=== PATIENT | female | born 1960 | race Caucasian/White ===

== ENCOUNTER → 2019-03-04 | Outpatient (CLI) | payer OTHER | LOC: M.RAD 14:30 | DX: N63.12 Unspecified lump in the right breast, upper inner quadrant (principal) ==

== ENCOUNTER → 2019-03-05 | Outpatient (CLI) | payer OTHER ==
--- NOTE | 2019-03-10 14:11 | PATH ---
[address] [address] PATHOLOGY RPT PROCEDURE Name: BEENA WELLINGTON Room: [facility] EMILEE Pardo#: [id number] Admission: 03/05/19 Date of : 62 Discharge: Report #: [id number] Path Case #: [id number] [facility] Accession Number: [id number] . 01 Material submitted: . breast - RIGHT BREAST STEREOTACTIC FOR CALCIFICATIONS. Modifiers: right . 01 Clinical history: . Calcifications. . 02 Diagnosis: Right breast calcifications, stereotactic biopsy: - INFILTRATING DUCTAL ADENOCARCINOMA, HIGH-GRADE, SPANNING AT LEAST 14 MM, IN ASSOCIATION WITH DUCTAL CARCINOMA IN SITU (DCIS), NUCLEAR GRADE 3, COMEDO TYPE AND ABUNDANT CALCIFICATIONS. SEE COMMENT. (MAMI:pit; 03/06/2019) QTP/03/06/2019 . 02 Comment: Specimen type: Stereotactic biopsy Tumor site: Right breast Tumor quantitation: Approximately 80% of submitted tissues Histologic type: Ductal adenocarcinoma Histologic grade: III of III Tubules, nuclei and mitoses: 3, 3, 3 LVSI: Not identified Microcalcifications: Identified Markers: Breast tumor profile pending Block: A1 . ER/ND profile studies are pending on A1 and will be the subject of an addendum report. Reviewed with Dr. Gurdeep Alvarado who agrees with the diagnosis. Christa Hudson notified at approximately 1615 on 03/06/2019. (MAMI:pit; 03/06/2019) . 02 Addendum: . This is issued to clarify that a 4 panel breast tumor profile is pending on A1 and will be the subject of an addendum report. (MAMI:licensing analyst; 03/06/2019) MBR/03/06/2019 Addendum Electronically Signed by Robbin Pace MD, Pathologist Addendum #2: Special studies report received from [facility], [address] [place] [address], [address], [place], [address], on case [id number], labeled with their number [id number], dated 03/05/2019. . Breast/[place] [address] PATHOLOGY RPT PROCEDURE Name: BEENA WELLINGTON [id number] Admission: 03/05/19 Date of : 62 Discharge: Report #: [id number] Path Case #: [id number] Specimen Site: Rt Breast, Breast Carcinoma (Biopsy) Specimen ID#: [id number] . ER(Estrogen Receptor) Present/Positive . Percent: 90.04% Analysis: Image . ND(Progesterone Receptor) Present/Positive . Percent: 31.48% Analysis: Image . HER2 Equivocal . Score: 2+ Analysis: Image . Ki-67 Borderline Proliferation . Percent: 24.57% Analysis: Image . Time to Fixation (Cold Ischemic Time): 3 minutes Duration of Fixation: 13 hours and 35 minutes Type of Fixative: 10% Neutral Buffered Formalin . Comments: Additional studies: Reflex HER2 by FISH will be reported separately. . at [facility] Peyton Oleary M.D. Authorization Specialist . . Methodology The HER2 Receptor protein expression is analyzed using the [place] HER2 rabbit monoclonal antibody (clone 4B5). This assay is used for diagnostic determination of the HER2 protein over-expression in paraffin embedded, formalin fixed breast cancer tissue on the [employer] Benchmark. The specimen is processed using a polymer detection system. The membrane staining of the tumor is determined either by manual score or image analysis. This antibody is intended for in vitro diagnostic use. The score is reported as per package insert; 0, 1+, 2+, and 3+. [place] [address] PATHOLOGY RPT PROCEDURE Name: BEENA WELLINGTON Room: [facility] EMILEE Pardo#: [id number] Admission: 03/05/19 Date of : 62 Discharge: Report #: [id number] Path Case #: [id number] purposes. . A rabbit monoclonal antibody (clone SP1) that recognized the Estrogen Receptor is used to perform immunohistochemistry on routinely fixed (formalin) paraffin embedded tissue on the [place] Benchmark. The specimen is processed using a polymer detection system. The percentage of stained tumor nuclei is determined either manually or by image analysis. This test is intended for in vitro diagnostic use. This test is used for clinical purposes. . A rabbit monoclonal antibody (clone 1E2) that recognized the Progesterone Receptor is used to perform immunohistochemistry on routinely fixed (formalin) paraffin embedded tissue on the [place] Benchmark. The specimen is processed using a polymer detection system. The percentage of stained tumor nuclei is determined either manually or by image analysis. This test is intended for in vitro diagnostic use. This test is used for clinical purposes. . A rabbit monoclonal antibody (clone 30-9) that recognized Ki67 is used to perform immunohistochemistry on routinely fixed (formalin) paraffin embedded tissue on the [place] Benchmark. The specimen is processed using a polymer detection system. The percentage of stained tumor nuclei is determined either manually or by image analysis. This test is intended for in vitro diagnostic use. This test is used for clinical purposes. . Intended Use: This antibody is intended for in vitro diagnostic (IVD) use. HER2 (4B5) is a rabbit monoclonal antibody intended for the semi-quantitative detection of HER2 antigen in sections of formalin-fixed, paraffin embedded normal and neoplastic tissue. . This antibody is intended for in vitro diagnostic (IVD) use. Estrogen Receptor (ER) (SP1) is a rabbit monoclonal antibody (IgG) that is intended for the qualitative detection of estrogen receptor (ER) antigen in sections of formalin-fixed, paraffin-embedded tissue. ER is a rabbit monoclonal antibody that recognizes human estrogen receptor alpha. . This antibody is intended for in vitro diagnostic (IVD) use. Progesterone Receptor (ND) (1E2) is a rabbit monoclonal antibody (IgG) that is intended for the qualitative detection of progesterone receptor (ND) antigen in sections of formalin fixed, paraffin embedded tissue. ND is a rabbit monoclonal antibody that recognizes the A and B forms of the human progesterone receptor. . This antibody is intended for in vitro diagnostic (IVD) use. Ki-67 (30-9) is a rabbit monoclonal antibody (IgG) directed against C-terminal portion of Ki-67 antigen. Staining for Ki-67 can be used to aid in assessing the proliferative activity of normal and neoplastic tissue. Ki-67 is a nuclear protein expressed in proliferating cells. During the cell cycle, [place] [address] PATHOLOGY RPT PROCEDURE Name: BEENA WELLINGTON Room: [facility]#: [id number] Admission: 03/05/19 Date of : 62 Discharge: Report #: [id number] Path Case #: [id number] antigen is present in the G1, S, G2 and M phase but is absent in the G0 (quiescent phase). . . Disclaimer: This Test was performed by [facility] at [address], [address]. . [facility] is a business unit of [facility] [place] a wholly-owned subsidiary of [employer]. . This assay has not been validated on decalcified tissues. Results should be interpreted with caution if this specimen was decalcified given the likelihood of false negativity on decalcified specimens. . Any image(s) that accompany this report is/are a education courses sales representative image(s) only and should not be used to render a diagnosis. . This interpretation is contingent on the specimen and the clinical information received. . For any special tests/stains performed, known positive cells or tissues are tested with each marker and examined to ensure positivity. Positive and negative internal controls, if present, react appropriately. . This analysis is an adjunct to the evaluation of the referring physician and does not represent a final diagnosis. . The immunohistochemistry tests performed at [facility] [place] were validated on tissue fixed in 10% neutral buffered formalin. The performance characteristics of the tests performed on tissue processed in other fixatives is not known. . HER2 testing at [facility] [place] is performed in compliance with the 2018 updated ASCO/CAP Clinical Practice Guideline Focused Update. If the result is EQUIVOCAL (2+), it must be confirmed by an alternative assay such as FISH or Dual ALIYA. . REF: Preston TORRES, KEYANA Silva et al: Human Epidermal Growth Factor Receptor 2 Testing in Breast Cancer: ASCO/CAP Clinical Practice Guideline Focused Update. J Clin Oncol 36:2345-6206, 2018. . HER2 and ER/ND ASCO/CAP guidelines require fixation in neutral buffered formalin for a minimum of 6 and a maximum of 72 hours. Fixation times less than 6 hours may not adequately preserve cell proteins. Fixation times longer than 72 hours may cause excess cross-linking of proteins reducing the antigen available for staining. Either scenario can cause reduced staining; hence false negative results are possible [place] [address] PATHOLOGY RPT PROCEDURE Name: BEENA WELLINGTON Room: [facility] EMILEE Pardo#: [id number] Admission: 03/05/19 Date of : 62 Discharge: Report #: [id number] Path Case #: [id number] considered for these situations if the HER2 IHC score is less than 3+ or ER or ND is negative (no staining or <1% positive). It is recommended that specimens fixed longer than 72 hours with HER2 IHC scores less than 3+ be confirmed by HER2 FISH or Dual ALIYA. The time from biopsy/excision to fixation in formalin (cold ischemic time) must be less than 1 hour. Time to fixation (cold ischemic time) greater than 1 hour should be interpreted with caution. HER2 testing, mainly HER2 by FISH, is particularly vulnerable since excessive cold ischemic time results in preferential loss of HER2 probe signals that may lead to false negative results. . SCORE STAINING PATTERN IN TUMOR CELLS INTERPRETATION RESULTS 0 No staining observed or incomplete, faint membrane staining in less than or equal to 10% of tumor cells. Negative 1+ Incomplete, faint membrane staining in greater than 10% of tumor cells. Negative 2+ Weak to moderate complete membrane staining observed in greater than 10% of tumor cells. Equivocal* *Must be confirmed by alternative assay (IHC/FISH/Dual ALIYA) 3+ Intense, complete membrane staining in greater than 10% of tumor cells. Positive . A complete copy of the report is on file. . Professional and Technical services performed by [employer]. at [address] [place] [address]. . (KARIE: 03/09/2019) . . QMS/03/10/2019 Addendum Electronically Signed by Robbin Pace MD, Pathologist . 02 Electronically signed: . Robbin Pace MD, Pathologist NPI- [id number] . 01 Gross description: . Received in formalin labeled "Beena Wellington, right breast calcifications" is a 4.3 x 3.2 x 0.3 cm aggregate of dumas-yellow lobulated soft tissue cores. The specimen is submitted entirely in cassettes A1-A5. The specimen is removed from the patient at 0812 and placed in formalin at 0815 on March 05, 2019. The specimen is removed from formalin at [address]150 [place] [address] PATHOLOGY RPT PROCEDURE Name: BEENA WELLINGTON Room: [facility]#: [id number] Admission: 03/05/19 Date of : 62 Discharge: Report #: [id number] Path Case #: [id number] March 05, 2019. ([facility]; 03/05/2019) SYC/SYC . 02 Pathologist provided ICD-10: C50.911, D05.11 . 02 CPT . 712291 Specimen Comment: A courtesy copy of this report has been sent to Specimen Comment: [phone], , . Specimen Comment: Report sent to ,DR HUDSON / DR LOUIS Performed at: [address] [facility] [id number] [facility] [address], [place], [place] [id number] MD Reji Paulson MD Phone: [phone] Performed at: [address] [facility] [place] [address], [place], [place] [address] MD Robbin Pace MD Phone: [phone]
== END ==
LOC: M.RAD 07:38
DX: C50.911 Malignant neoplasm of unspecified site of right female breast (principal)

== ENCOUNTER → 2019-03-18 | Outpatient (CLI) | payer OTHER ==
[~2019-03-18] MED LIST: ACCUNEB SO1.25 MG/1 INH; AMITRIPTYLINE100 MG PO; ATENOLOL-CHLOR1 EACH PO; LIPITOR10 MG PO; MENOPAUSE SUPPO20 MG PO; PRILOSEC OTC20 MG PO; SUDAFED 12 HOU120 MG PO; TRAMADOL 50 MG50 MG PO; XANAX 0.5 MG0.5 MG PO
== END ==
LOC: M.MRI 13:30
DX: Z08 Encounter for follow-up examination after completed treatment for malignant neoplasm (principal); Z85.3 Personal history of malignant neoplasm of breast

== ENCOUNTER → 2019-03-27 | Day surgery (SDC) | payer OTHER ==
--- NOTE | ~2019-03-27 | OP ---
[address] [address] OPERATIVE REPORT Name: JEAN WELLINGTON Room: [facility].#: [id number] Admission: 03/27/19 Attend Phys: Hayley Rush DO Discharge: Date of : 62 Report #: [id number] THIS REPORT FOR: //name// [facility] DICTATED BY: Tae Friedman DO DATE OF SERVICE: 03/27/2019 DICTATED FOR: Hayley Rush DO PREOPERATIVE DIAGNOSIS: Metastatic breast cancer. POSTOPERATIVE DIAGNOSIS: Metastatic breast cancer. PRIMARY SURGEON: Hayley Rush DO CO-SURGEON: Tae Friedman DO TREATING ENGINEER HELPER: ____ MS3. OPERATION PERFORMED: Left ultrasound and fluoroscopy guided IJ tunneled port placement, fluoroscopic confirmation of wire and catheter placement with surgeon interpretation of images. ANESTHESIA: General and local. ESTIMATED BLOOD LOSS: 5 mL. SPECIMEN REMOVED: None. COMPLICATIONS: None. INDICATIONS FOR PROCEDURE: The patient is a pleasant 58-year-old female who presents to the office with metastatic breast cancer. She had seen medication oncology and recommended adjuvant chemotherapy. We recommended chemo port placement. Full discussion of procedure, alternatives, risks and possible complications discussed include but not limited to bleeding, infection, postoperative pain, scarring, port infection, need for port removal for malfunction and anesthesia risks. The patient voiced understanding of these risks and agreed to proceed with surgery. DESCRIPTION OF PROCEDURE: The patient was again seen and examined in preoperative holding. Fully informed written consent was obtained. Preoperative antibiotics, 2 grams Ancef were given. The patient was [facility] [address] [facility] [place] [address] OPERATIVE REPORT Name: JEAN WELLINGTON Room: [facility].#: [id number] Admission: 03/27/19 Attend Phys: Hayley Rush DO Discharge: Date of : 62 Report #: [id number] subsequently transferred to operating room suite and placed on the operating table in supine position. At this time, anesthesia induced general anesthesia via endotracheal intubation and this was successful. Arms were tucked at the patient's side. SCDs were placed to bilateral lower extremity calves. All joints and extremities were padded and protected. The patient was prepped and draped using standard sterile fashion. Time-out was performed prior to onset of procedure began by placing the patient in Trendelenburg. Using ultrasound guidance, we located the left IJ. At this time, 10 mL of 0.5% Marcaine were injected for local anesthetic. Again using ultrasound guidance, the left IJ was accessed using the 18 gauge needle supplied in the kit with 2 passes of the needle. There was dark venous blood aspirated into the syringe. Syringe was removed. Nonpulsatile venous blood continued to flow through the needle. At this time, wire was passed through the needle into the left IJ. Needle was removed. C-arm was brought onto the field. Imaging was obtained showing the wire in the atriocaval junction. Ultrasound was also used to confirm that the wire was intact in the left IJ and the neck. C-arm was then taken off the field. At this time, the chemo port pocket of the upper left lateral chest incision was made using a #15 blade scalpel. A horizontal incision was made. Electrocautery was then used to dissect down through subcutaneous tissue until pectoralis fascia was noted. Next, the pocket was made using blunt dissection, hemostat and finger. Once this was performed and verified that the chemo port would fit snugly into the pocket using #11 blade scalpel, a vertical incision was made over the wire in order to pass the dilator and tunneler. Next, the dilator was passed over the wire into the left IJ. The wire and dilator were then removed and the sheath remained behind. Finger was used to occlude over the sheath opening. Next, the previously flushed port tubing was placed through the sheath and into the left IJ without resistance. The sheath was then cracked at the hub and removed. C-arm was again brought in the field and verified that the tip of the catheter was in the atriocaval junction. At this time, we tunneled through the subcutaneous tissue over top of the clavicle from the neck to our chest pocket. Catheter tubing was placed to the end of the tunnel and was tunneled through the subcutaneous tissue. Once this was performed, the tunneler was removed. C-arm was again used to verify that we were still with catheter tip at the atriocaval junction and there was no kink of the tubing at the neck. A catheter was cut to length. Chemo port was then attached to the tubing and the plastic cap was then placed to lock it in place. After this was performed, two 0 Prolenes were used to sew the chemo port into the pocket. Avina needle was then used to aspirate and flush normal saline and the chemo port was then locked with heparin. Once this was performed, the incision was closed in a layered fashion using 3-0 Vicryl in the subcutaneous and dermal layers and the skin was closed using a running subcuticular 4-0 Monocryl. An additional 20 mL of 0.5% Marcaine was injected for local anesthetic. The patient tolerated the procedure well. One last evaluation under fluoroscopy verified that the catheter was in good position. There were no kinks in the tubing. The patient tolerated the procedure well and was extubated in the OR, transferred to PACU in stable condition [place] [address] OPERATIVE REPORT Name: JEAN WELLINGTON [id number] Admission: 03/27/19 Attend Phys: Hayley Rush DO Discharge: Date of : 62 Report #: [id number] Plan to discharge to home. Follow up in office with Dr. Rush in 1 week. After the incision was closed, the skin was cleansed using wet and dry lap and sterile dressing was applied. Mastisol, Steri-Strips, Tegaderm, 4 x 4s over both the chest incision and neck incision. Again, there were no complications. Postoperative chest x-ray was ordered and obtained in the PACU. Once this was verified, the patient recovered from anesthesia, she was discharged to home. Follow up in the office with Dr. Rush in 1 week. By: 1505 2143Cbong Rush DO /nt
[2019-03-27 12:25] LABS: HEMATOCRIT 38.7 % (37.0-47.0); MCH 31.9 pg (26.0-34.0); MCHC 33.7 g/dL (28.0-37.0); MCV 94.8 fL (80.0-100.0); MPV 9.6 fl. (7.2-11.1); RBC 4.08 mil/uL (4.20-5.00); RDW-CV 14.1 % (10.5-14.5); WBC 6.3 thou/uL (4.0-11.0)
[2019-03-27 12:33] LABS: CALCIUM 9.2 mg/dL (8.5-10.1); CREATININE 1.4 mg/dL (0.6-1.3); POTASSIUM 3.6 mmol/L (3.5-5.1)
[2019-03-27 12:38] LABS: ALBUMIN 3.8 g/dL (3.4-5.0); TOTAL BILIRUBIN 0.3 mg/dL (<0.1-1.0); TOTAL PROTEIN 6.9 g/dL (6.4-8.2)
--- NOTE | 2019-03-27 13:17 | EKG ---
[place] [address] ELECTROCARDIOGRAM REPORT Name: JEAN WELLINGTON Room: [facility]#: [id number] Admission: 03/27/19 Attend Phys: Hayley Rush DO Discharge: Date of : 62 Report #: [id number] THIS REPORT FOR: //name// [facility] Test Date: 2019-03-27 Test Time: 12:24:45 Pat Name: JEAN WELLINGTON Department: Room: Gender: F Real Estate Clerk: : 1960 Requested By: Hayley Rush Order Number: [id number] Makeda MD: Dwayne Murillo Measurements Intervals [place] Rate: 68 P: 53 HI: 205 QRS: -4 QRSD: 138 T: 28 QT: 416 QTc: 443 Interpretive Statements Sinus rhythm Borderline prolonged HI interval Consider left atrial enlargement Nonspecific intraventricular conduction delay No previous ECG available for comparison Electronically Signed On 03-27-2019 13:17:01 CDT by Dwayne Murillo [email or web address] <ELECTRONICALLY SIGNED> By: Dwayne Murillo MD, [facility] 03/27/19 1317 1224 1224 Dwayne Murillo MD, FACC /EPI
== END | disposition home or self-care (01) ==
LOC: M.SUR 11:20
PROVIDERS: Surgery
DX: C79.81 Secondary malignant neoplasm of breast (principal); C80.1 Malignant (primary) neoplasm, unspecified; Z88.0 Allergy status to penicillin; Z88.8 Allergy status to other drugs, medicaments and biological substances; Z79.899 Other long term (current) drug therapy

== ENCOUNTER → 2019-04-06 | Outpatient (CLI) | payer OTHER ==
--- NOTE | 2019-04-06 16:53 | 2DMMODE ---
[place] [address] 2 D/M-MODE ECHOCARDIOGRAM Name: JEAN WELLINGTON Room: [facility]#: [id number] Admission: 04/06/19 Attend Phys: Sheron Kendall MD Discharge: Date of : 62 Date of Service: 04/06/19 1653 Report #: [id number] THIS REPORT FOR: //name// APPROVED REPORT Study performed: 04/06/2019 08:57:22 EXAM: Limited 2D Echocardiogram Patient Location: Out-Patient BSA: 1.69 HR: 69 bpm BP: 122/77 mmHg Other Information Study Quality: Good Indications Chemo 2D Dimensions IVSd: 10.06 (7-11mm) LVDd: 40.59 mm PWd: 9.06 (7-11mm) LVDs: 27.06 (25-40mm) Aortic Root: 23.31 mm Left Ventricle The left ventricle is normal size. There is normal LV segmental wall motion. There is normal left ventricular wall thickness. Left ventricular systolic function is normal. . LVEF is 60-65%. Right Ventricle The right ventricular systolic function is normal. Aortic Valve The aortic valve is normal in structure. Mitral Valve The mitral valve is normal in structure. Tricuspid Valve The tricuspid valve is normal in structure. Pulmonic Valve The pulmonary valve is normal in structure. [address] [address] 2 D/M-MODE ECHOCARDIOGRAM Name: JEAN WELLINGTON Room: [facility]#: [id number] Admission: 04/06/19 Attend Phys: Sheron Kendall MD Discharge: Date of : 62 Date of Service: 04/06/19 165 Report #: [id number] Great Vessels The aortic root is normal in size. IVC is normal in size and collapses >50% with inspiration. Pericardium There is no pericardial effusion. <Conclusion> The left ventricle is normal size. There is normal left ventricular wall thickness. Left ventricular systolic function is normal. LVEF is 60-65%. There is normal LV segmental wall motion. Thr Global Longitudinal strain (GLS) is -18.76%. This falls within the normal range. <ELECTRONICALLY SIGNED> By: Cassius Toth MD, FACC 04/06/191652 52 52 Cassius Toth MD, FACC /INF
== END ==
LOC: M.CRD 04-01 08:00
DX: Z51.81 Encounter for therapeutic drug level monitoring (principal); C50.211 Malignant neoplasm of upper-inner quadrant of right female breast; Z17.0 Estrogen receptor positive status [ER+]

== ENCOUNTER → 2019-06-16 | Outpatient (CLI) | payer OTHER ==
[2019-06-16 12:38] VITALS: BP 100/48; BP 107/52; BP 109/57; BP 96/50
--- NOTE | 2019-06-16 16:37 | NUR ---
ARRIVED AMBULATORY. MADE SELF COMFORTABLE IN RECLINER. PORT A CATH TO LEFT CHEST ALREADY ACCESSED. PORT PATENT WITH GOOD BRISK BLOOD RETURN AND EASY FLUSH. TRANSFUSION COMPLETED AND TOLERATED WELL. PORT FLUSHED AND LEFT ACCESSED FOR CHEMO USE THIS SATURDAY. DENIES QUESTIONS OR NEEDS AT DISCHARGE.
== END ==
LOC: M.LAB 10:30 → M.INFUS 11:24 → M.LAB 11:24
DX: C50.211 Malignant neoplasm of upper-inner quadrant of right female breast (principal); D64.81 Anemia due to antineoplastic chemotherapy; T45.1X5A Adverse effect of antineoplastic and immunosuppressive drugs, initial encounter; Y93.89 Activity, other specified

== ENCOUNTER → 2019-07-20 | Outpatient (CLI) | payer OTHER | LOC: M.ULTRA 08:55 | DX: N63.11 Unspecified lump in the right breast, upper outer quadrant (principal) ==

== ENCOUNTER 2019-08-13 06:07 | Observation (INO) | payer OTHER ==
[~2019-08-13] VITALS: Ht 157.5 cm; Wt 65.3 kg
--- NOTE | ~2019-08-13 | H ---
[address] [address] HISTORY AND PHYSICAL Name: JEAN WELLINGTON Room: [address] Aldo Pardo#: [id number] Admission: 08/21/19 Attend Phys: Hayley Rush DO Discharge: 08/22/19 Date of : 62 Report #: [id number] THIS REPORT FOR: //name// Please refer to the History and Physical performed in the physician's office. By: 0947Medical Records Staff STORM /NAIN
[2019-08-21 07:13] LABS: HEMATOCRIT 34.2 % (37.0-47.0); MCH 34.2 pg (26.0-34.0); MCV 97.9 fL (80.0-100.0); RBC 3.49 mil/uL (4.20-5.00); RDW-CV 14.8 % (10.5-14.5); WBC 4.5 thou/uL (4.0-11.0)
[2019-08-21 07:22] LABS: CALCIUM 8.9 mg/dL (8.5-10.1); CREATININE 1.2 mg/dL (0.6-1.3); POTASSIUM 3.3 mmol/L (3.5-5.1)
[2019-08-21 07:50] VITALS: BP 115/73
[2019-08-21 12:30] VITALS: BP 121/76
[2019-08-21 16:00] VITALS: BP 119/75
[2019-08-21 16:01] VITALS: BP 115/73
--- NOTE | 2019-08-21 18:40 | OP ---
[address] [address] OPERATIVE REPORT Name: JEAN WELLINGTON Room: [address] M.R.#: [id number] Admission: 08/21/19 Attend Phys: Hayley Rush DO Discharge: Date of : 62 Report #: [id number] THIS REPORT FOR: //name// CC: Hayley [facility] DICTATED BY: Sanjeev Bain DO DATE OF SERVICE: 08/21/2019 PREOPERATIVE DIAGNOSIS: Right breast cancer. POSTOPERATIVE DIAGNOSIS: Right breast cancer. SURGEON: Hayley Rush DO CO-SURGEON: Vick Bain, PGY5 DIRECTOR OF ARCHIVES: Johny Felipe, MS3. OPERATION PERFORMED: Right mastectomy and right axillary lymph node dissection. ANESTHESIA: General and local. ESTIMATED BLOOD LOSS: 30 mL. SPECIMENS REMOVED: Right breast and right axilla. COMPLICATIONS: None. COMMENTS: Stable on condition. DISPOSITION: PACU to the floor. DESCRIPTION OF PROCEDURE: After the appropriate consents were obtained, this patient was taken to the operating room and laid in supine position. She had her both arms placed out her sides. She had a safety strap placed across her lap. All lines placed by Anesthesia. She was sedated and intubated by Anesthesia without difficulty. A timeout was performed to correctly identify the patient and procedure. We started by using some Lymphazurin blue at the right nipple and right areola. This was injected in the four quadrants around the right areola to help identify lymph nodes during our dissection. Once this was completed, the patient's right chest and right axilla were prepped and draped in a standard sterile fashion. A second timeout was performed to correctly identify the patient and procedure. She was given perioperative antibiotics at this time. We marked the borders of our [place] [address] OPERATIVE REPORT Name: JEAN WELLINGTON Room: [address] Aldo Pardo#: [id number] Admission: 08/21/19 Attend Phys: Hayley Rush DO Discharge: Date of : 62 Report #: [id number] the clavicle, the sternum, inframammary fold, and the latissimus dorsi. We then marked out our incision for mastectomy using 0.5% Marcaine we injected along this judith for local anesthesia. We then used a #10 blade scalpel to make our incision. This was carried down through subcutaneous tissue using electrocautery. Any bleeding which was occurring was adequately controlled using electrocautery. We started on the superior aspect of the right breast and took our dissection superiorly until we encountered the clavicle. We then dissected medially until we were able to identify the borders of the right sternum. We went inferiorly until we were able to dissect to the inframammary fold. Then, we moved laterally until we encountered the latissimus dorsi. Dissection was somewhat difficult, and the patient had very thin flaps secondary to her history of breast augmentation. The implants were actually placed beneath the muscle. Once we were pleased with the borders of our dissection, we then started medially and were able to dissect down and identify the muscle along the chest wall. We continued this dissection plane laterally to remove the breast. We paid close attention in order to help preserve the fascia over the muscle. The patient had very good planes and minimal subcutaneous fat overlying the breast tissue. We were able to dissect off the breast all the way down to the pectoralis fascia within our borders of our previously made dissection. The breast was completely excised and then marked with a suture in order to judith the margins. No muscle infiltration was identified. The superior margin was marked with a short stitch and the lateral margin was marked with a long suture. This was passed off as specimen. We irrigated this area copiously and any bleeding that was occurring was adequately controlled using electrocautery. It was at this point that we returned our attention to the right axilla. We were able to easily visualize a large blue lymph node which was the starting point for dissection. We dissected out the borders of the axillary dissection. We dissected it superiorly until we encountered the axillary artery and vein. We were able to protect the structures and then we moved medially and we were able to identify small perforating vessels, specifically vein and artery coursing medially. Both these structures were clipped and ligated using medium clip animal skinner as well as Metzenbaum scissors. We dissected out laterally and we were able to visualize a smaller vessel coursing laterally, which was also dissected free and clipped and ligated. We were able to palpate multiple nodes within our axillary tissue. We did judith the sentinel lymph node with the suture. This was sent for specimen for permanent and we marked the superficial aspect with a short stitch and the deep aspect with a long stitch. We completely irrigated the axilla, and we were able to identify small amounts of bleeding which was adequately controlled using electrocautery. We injected FloSeal into our surgical region, and there was adequate hemostasis at the completion of the procedure. We also placed a 15-Maldivian ERWIN drain which sat within our axilla and then coursed inferiorly along the inferior aspect of the breast. This drain was sutured into place using 3-0 nylon stitch. The dermis and subcutaneous tissue was reapproximated using a 3-0 Vicryl stitch in an inverted interrupted fashion. The [place] [address] OPERATIVE REPORT Name: JEAN WELLINGTON Room: [address] Char#: [id number] Admission: 08/21/19 Attend Phys: Hayley Rush DO Discharge: Date of : 62 Report #: [id number] using a 4-0 Monocryl stitch in a running subcuticular fashion. The patient's right breast was cleaned and dried adequately. Right chest around it was cleaned and dried adequately and we placed Dermabond skin glue and covered incision through a piece of gauze as well as a Tegaderm over the drain to act as a dressing. The patient was allowed to awaken and was subsequently extubated in the OR without difficulty. All counts were correct x 2 at this procedure. The patient tolerated the procedure well. She will recover in PACU and then be admitted for observation. Dr. Rush was present and scrubbed for the entire procedure. <ELECTRONICALLY SIGNED> By: Hayley Rush DO 08/21/19 1840 1122 1204Cbong Rush DO /nt
[2019-08-21 20:42] VITALS: BP 115/65
[2019-08-22] VITALS: BP 108/61
[2019-08-22 04:00] VITALS: BP 112/64
[2019-08-22 08:00] VITALS: BP 127/69
[2019-08-22] MEDS ORDERED: OXYCODONE HCL 55 MG PO (09:33)
[2019-08-22 12:00] VITALS: BP 121/63
[2019-08-22 13:33] VITALS: BP 115/73
--- NOTE | 2019-08-27 10:07 | PATH ---
[address] [address] PATHOLOGY RPT PROCEDURE Name: BEENA WELLINGTON Room: [address] Aldo Pardo#: [id number] Admission: 08/21/19 Date of : 62 Discharge: 08/22/19 Report #: [id number] Path Case #: [id number] [facility] Accession Number: [id number] . 01 Material submitted: . PART A: breast - RIGHT BREAST LONG STITCH LATERAL SHORT STITCH SUPERIOR. Modifiers: right PART B: lymph node - RIGHT AXILLARY NODES. Modifiers: right, axillary tail . 01 Clinical history: . Right ductal carcinoma. . 02 Diagnosis: A. "Right breast", mastectomy: - FOCAL RESIDUAL INVASIVE DUCTAL CARCINOMA, POORLY DIFFERENTIATED, GRADE III, RARE SCATTERED MALIGNANT DUCTS, WITH PREVIOUS BIOPSY SITE AND TREATMENT SITE CHANGES; MARGIN FREE OF INVASIVE CARCINOMA, CLOSEST MARGIN (POSTERIOR/DEEP-BLACK) GREATER THAN 1 CM AWAY. . B. "Right axillary lymph nodes", dissection: - METASTATIC CARCINOMA PRESENT IN 1 OF 23 LYMPH NODES, METASTATIC FOCUS MEASURING 2.5 MM ON THE SLIDE (1/23 NODES). . (ONELW:cleo; 08/26/2019) . Surgical Pathology Cancer Case Summary . Procedure ___ Total mastectomy . Specimen Laterality ___ Right . Tumor Size ___ Size of largest invasive focus cannot be determined: Scattered malignant ducts with post therapy changes. . Histologic Type ___ Invasive carcinoma of no special type (invasive ductal carcinoma, not otherwise specified) . Histologic Grade (Emily Histologic Score) Glandular (Acinar)/Tubular Differentiation ___ Score 3 (<10% of tumor area forming glandular/tubular structures) . Nuclear Pleomorphism ___ Score 3 (vesicular nuclei, often with prominent nucleoli, exhibiting marked variation in size and shape, occasionally with very large and bizarre forms) [place] [address] PATHOLOGY RPT PROCEDURE Name: PORFIRIO WELLINGTONArnaud GREGORY Room: [address] Char#: [id number] Admission: 08/21/19 Date of : 62 Discharge: 08/22/19 Report #: [id number] Path Case #: [id number] . Mitotic Rate ___ Score 2 . Overall Grade ___ Grade 3 (scores of 8 or 9) . Ductal Carcinoma In Situ (DCIS) ___ Present . Tumor Extension Skin ___ Skin is present and uninvolved . Nipple ___ DCIS does not involve the nipple epidermis . Skeletal Muscle ___ No skeletal muscle is present . Margins Invasive Carcinoma Margins ___ Uninvolved by invasive carcinoma Distance from closest margin (millimeters): ___ Specify: Greater than 10 mm Specify closest margin (required only if <10mm): Deep . DCIS Margins ___ Uninvolved by DCIS Distance from closest margin (millimeters): ___ Greater than 10 mm . Regional Lymph Nodes ___ Involved by tumor cells Number of Lymph Nodes with Macrometastases (>2 mm): 1 . Size of Largest Metastatic Deposit (millimeters): 2.5 mm . Extranodal Extension ___ Not identified . Total Number of Lymph Nodes Examined: 23 . Treatment Effect Treatment Effect in the Breast ___ Probable or definite response to presurgical therapy in invasive carcinoma . Treatment [place] [address] PATHOLOGY RPT PROCEDURE Name: WELLINGTONBEENA Room: [address] Aldo Pardo#: [id number] Admission: 08/21/19 Date of : 62 Discharge: 08/22/19 Report #: [id number] Path Case #: [id number] ___ No definite response to presurgical therapy in metastatic carcinoma . Pathologic Stage Classification (pTNM, AJCC 8th Edition) TNM Descriptors ___ y (posttreatment) . Primary Tumor (pT) ___ pT1: Tumor =20 mm in greatest dimension . Regional Lymph Nodes (pN) ___ pN1a:Metastases in 1 to 3 axillary lymph nodes, at least 1 metastasis larger than 2.0 mm MBR 08/27/2019 0928 Local . 02 Comment: The patient has a history of "metastatic high-grade carcinoma, typical of breast ductal primary, spanning at least 1.4 mm, in association with lymph node tissue" from a previous right axillary lymph node biopsy ([id number]) and "infiltrating ductal adenocarcinoma, high-grade, spanning at least 14 mm, in association with ductal carcinoma in situ (DCIS), nuclear grade III, comedo type and abundant calcifications" from a previous right breast needle biopsy ([id number]). The current case is co-reviewed with Dr. Mitchell Vines. Clinical correlation is recommended. . Properly controlled immunohistochemical stains are performed. . CK7 (block A7) - highlights the scattered tumor cells; AE1/AE3 (block A8) - highlights the scattered tumor cells; CK STEPHANIE (block A9) - highlights the scattered tumor cells; AE1/AE3 (block B4) - highlights the metastatic carcinoma; CD68 (block B4) - stains histiocytes. . (CLW:cleo; 08/26/2019) . 02 Electronically signed: . Berenice Alvarado MD, Pathologist NPI- [id number] . 01 Gross description: . A. Received in formalin labeled "Beena Wellington, right breast ueatjk-rnif-ooadodt-short-superior" is an oriented simple mastectomy specimen weighing 344 g and measuring 17.3 cm from superior to inferior, 17.2 cm from medial to lateral, and 3.5 cm from anterior to posterior. The anterior aspect of the specimen displays an ellipse of dumas-white skin measuring 12.0 x 4.3 x 0.3 cm. The skin displays a centrally located everted nipple measuring 1.3 x 1.3 x 0.9 cm. No induration or retraction is identified on the skin surface. The superior [place] [address] PATHOLOGY RPT PROCEDURE Name: BEENA WELLINGTON Room: [address]#: [id number] Admission: 08/21/19 Date of : 62 Discharge: 08/22/19 Report #: [id number] Path Case #: [id number] tissue margin is inked blue, the inferior half is inked green, and the deep/posterior fascia margin is inked black. The specimen is serially sectioned to reveal a dumas-white stellate mass at 12:00, 4.0 cm from the nipple. The mass measures 2.4 x 2.0 x 1.0 cm and is located to the margins as follows: 5.1 cm to lateral, 7.5 cm to medial, 5.8 cm to superior, 10.7 cm to inferior, 1.7 cm to anterior, and 0.7 cm to deep. A U shaped biopsy clip is present within the mass. The uninvolved breast parenchyma is dumas-yellow and lobulated with 30% dense dumas-white fibrous tissue. No intramammary lymph nodes are grossly identified. [employer] sections of the specimen are submitted as follows: A1 upper outer quadrant A2 lower outer quadrant A3 lower inner quadrant A4 upper inner quadrant A5 skin closest to mass A6 nipple, serially sectioned A7 mass to deep margin A8 mass to anterior margin A9 additional artists' booking representative section of mass The specimen is removed from the patient at 0919 on 08/21/2019. The time placed in formalin is not specified. The specimen is removed from formalin at 1850 on 08/23/2019. . B. Received in formalin labeled "Beena Wellington, right axillary nodes mlwhhd-kxpr-ozyu-short-superficial" is a portion of yellow-dumas lobulated fibroadipose tissue measuring 12.1 x 8.2 x 1.7 cm. The specimen is palpated to reveal no grossly identifiable lymph nodes in the superficial half of the specimen. The deep half displays multiple dumas-brown lymph nodes ranging from 0.3-1.4 cm in greatest dimension. No biopsy clips are grossly identified. No grossly positive lymph nodes are identified. The entire specimen is submitted as follows: B1-B2 multiple whole lymph nodes in each cassette B3 two trisected lymph nodes B4 one lymph node, serially sectioned B5 multiple whole lymph nodes B6 one trisected lymph node B7-B11 superficial fibroadipose tissue, submitted entirely B12-B16 deep fibroadipose tissue submitted entirely [place] [place] [facility] 08/23/2019 0920 Local . 02 Pathologist provided ICD-10: C50.911, C77.3 . 02 CPT . 120926, V95791, P35175 Specimen Comment: A courtesy copy of this report has been sent to [phone], [phone] Specimen Comment: [phone] Specimen Comment: [place] [address] PATHOLOGY RPT PROCEDURE Name: WELLINGTONBEENAPRINCESS GREGORY Room: [address] Aldo Pardo#: [id number] Admission: 08/21/19 Date of : 62 Discharge: 08/22/19 Report #: [id number] Path Case #: [id number] [facility]formed at: 01 [facility] [address] [address], [place], [place] [id number] MD Reji Paulson MD Phone: [phone] Performed at: 02 [facility] [address] [id number] MD Chetan Lamar MD Phone: [phone]
== END 2019-08-22 14:15 | disposition home health service (06) ==
LOC: M.SUR 06:07 → EDSTATUS 10:18 → M.PRE 10:21 → M.TBA 08-21 06:25 → M.PRE 08-21 08:19 → M.ORTHSURG 08-21 11:32 → M.PRE 08-21 12:42 → M.ORTHSURG 08-22 14:15
PROVIDERS: ADMIT Surgery
DX: C50.911 Malignant neoplasm of unspecified site of right female breast (principal)

== ENCOUNTER → 2020-04-26 | Outpatient (CLI) | payer OTHER ==
[~2020-04-26] MED LIST changes: +ARIMIDEX1 MG PO; +KLOR-CON M1010 MEQ PO; +OXYCODONE HCL 55 MG PO; +VITAMIN D
== END ==
LOC: M.LAB 15:52
PROVIDERS: ATTEND Surgery
DX: Z01.812 Encounter for preprocedural laboratory examination (principal); Z20.828 Contact with and (suspected) exposure to other viral communicable diseases; K42.9 Umbilical hernia without obstruction or gangrene

== ENCOUNTER → 2020-05-03 | Day surgery (SDC) | payer OTHER ==
[~2020-05-03] MED LIST changes: +PROTONIX 20 MG20 MG PO
[2020-05-03 08:55] LABS: CALCIUM 9.2 mg/dL (8.5-10.1); CREATININE 1.3 mg/dL (0.6-1.3); POTASSIUM 3.3 mmol/L (3.5-5.1)
--- NOTE | 2020-05-03 09:46 | EKG ---
[place] [address] ELECTROCARDIOGRAM REPORT Name: JEAN WELLINGTON Room: [facility]#: [id number] Admission: 05/03/20 Attend Phys: Hayley Rush, Discharge: Date of : 62 Date of Service: 05/03/20823 Report #: [id number] THIS REPORT FOR: //name// [facility] Test Date: 2020-05-03 Test Time: 08:24:03 Pat Name: JEAN WELLINGTON Department: Room: Gender: F Change Release Manager: : 1960 Requested By: Hayley Rush Order Number: [id number] Makeda MD: Dwayne Murillo Measurements Intervals [place] Rate: 78 P: 57 TN: 192 QRS: 19 QRSD: 144 T: 33 QT: 399 QTc: 455 Interpretive Statements Sinus rhythm Consider left atrial enlargement IVCD, consider atypical RBBB Compared to ECG 03/27/2019 12:24:45 No significant changes Electronically Signed On 05-03-2020 9:46:02 CDT by Dwayne Murillo [email or web address] <ELECTRONICALLY SIGNED> By: Dwayne Murillo MD, FACC 05/03/20 0946 3 3 Dwayne Murillo MD, [facility] /EPI
--- NOTE | 2020-05-03 15:08 | OP ---
[address] [address] OPERATIVE REPORT Name: JEAN WELLINGTON Room: [facility].#: [id number] Admission: 05/03/20 Attend Phys: Hayley Rush DO Discharge: Date of : 62 Report #: [id number] THIS REPORT FOR: //name// cc: Nain Camacho Vincent DO ~ CC: Hayley Camacho DO DICTATED BY: Izaiah Haley DO PREOPERATIVE DIAGNOSIS: Periumbilical hernia, status port. POSTOPERATIVE DIAGNOSIS: Supraumbilical hernia, incarcerated. Status port. SURGEON: Hayley Rush DO TEXTILES SALES REPRESENTATIVE: Izaiah Haley, PGY5. TEXTILES SALES REPRESENTATIVE: Edy Mallory DO, PGY1. SECOND TEXTILES SALES REPRESENTATIVE: MS Ephraim3. OPERATION PERFORMED: Removal of left IJ Port-A-Cath and primary repair of supraumbilical hernia. ANESTHESIA: General, local. ESTIMATED BLOOD LOSS: 3 mL. SPECIMEN: Hernia sac and contents. COMPLICATIONS: None. INDICATIONS: The patient is a 59-year-old female well known to us with history of right-sided breast cancer treated with mastectomy. She had a Port-A-Cath that was in placed for chemotherapy and that was no longer needed. She was interested in removal of the Port-A-Cath. She also had a symptomatic painful bulge at her umbilicus, which was found to be an incarcerated hernia on exam. She was informed of the risks and benefits of Port-A-Cath removal and repair of the periumbilical hernia with risks including but not limited to bleeding, infection, possible mesh use, mesh complications, bowel injury. She understood these risks and decided to proceed with surgery. DESCRIPTION OF PROCEDURE: After informed consent was obtained, the patient was brought to the operating room and placed in supine position[place] [address] OPERATIVE REPORT Name: JEAN WELLINGTON Room: [facility]#: [id number] Admission: 05/03/20 Attend Phys: Hayley Rush DO Discharge: Date of : 62 Report #: [id number]. Preoperative antibiotics were given. General anesthesia was administered with an LMA. The patient was prepped and draped in the usual sterile fashion. A surgical pause was held to confirm proper patient and procedure. The port was palpated. A 10 blade was used to make an incision over the previous incision. Dissection was carried through subcutaneous tissue until the port was identified. It was bluntly dissected free from the capsule. Scissors were used to cut the 2 Prolene sutures keeping the port in place, these were removed. Once completely delivered from the cavity, the port was removed. The catheter was examined and intact. Pressure was held on the IJ for 5 minutes. The tract was hemostatic. The wound was then closed in layered fashion using 3-0 Vicryl, 4-0 Monocryl. Attention was then turned towards the umbilicus. A curvilinear horizontal supraumbilical incision was made approximately 3 cm in length with a #15 blade. Dissection was carried through the dermis using cautery. Blunt dissection was then used to circumferentially dissect the hernia sac from the surrounding subcutaneous fat. This was carried down to the level of the fascia, which was identified. The hernia was circumferentially dissected with a combination of blunt dissection and cautery. Once completely from the umbilicus, the defect was examined. The defect was superior to the umbilicus and the umbilical stalk was not from the fascia. The hernia sac and contents, which was omental fat, were amputated using cautery. The defect was approximately 5 mm. Due to its small size, a primary repair was decided upon. Two interrupted stitches using 0 Prolene were used to close the defect, which closed under no tension. A small flap of subcutaneous fat was then developed using cautery and sutured over the Prolene sutures to prevent palpation through the skin. The wound was then closed in layered fashion using 3-0 Vicryl and 4-0 Monocryl. Wounds were cleansed and dressed with Dermabond. The sponge count was correct. The needle count was incorrect; however, an x-ray of the patient was obtained and the needle was not within either wound. The patient was emerged from anesthesia and transferred to the PACU in stable condition. <ELECTRONICALLY SIGNED> By: Hayley Rush DO 05/03/20 1508 1108 1154Cbong Rush DO /nt
== END | disposition home or self-care (01) ==
LOC: M.SUR 08:09
PROVIDERS: ATTEND Surgery
DX: Z45.2 Encounter for adjustment and management of vascular access device (principal); K43.6 Other and unspecified ventral hernia with obstruction, without gangrene; C50.911 Malignant neoplasm of unspecified site of right female breast; Z98.890 Other specified postprocedural states; Z79.899 Other long term (current) drug therapy; Z88.0 Allergy status to penicillin

== ENCOUNTER → 2020-10-17 | Outpatient (CLI) | payer OTHER | LOC: M.RAD 10-13 10:40 | PROVIDERS: ATTEND Internal Medicine Hematology & Oncology | DX: Z12.31 Encounter for screening mammogram for malignant neoplasm of breast (principal) ==

== ENCOUNTER 2021-03-02 10:44 | Emergency (ER) | payer OTHER ==
[~2021-03-02] VITALS: Ht 154.9 cm; Wt 65.4 kg
[2021-03-02 11:25] LABS: ABSOLUTE LYMPHOCYTES 0.7 thou/uL (0.8-5.3); ABSOLUTE MONOCYTES 0.2 thou/uL (0.0-1.2); ABSOLUTE NEUTROPHILS 1.6 thou/uL (1.6-8.1); BASOPHILS 0.9 %; EOSINOPHILS 0.7 %; HEMATOCRIT 39.6 % (37.0-47.0); HEMOGLOBIN 13.7 gm/dL (12.0-15.0); LYMPHOCYTES 27.7 %; MCH 31.1 pg (26.0-34.0); MCHC 34.6 g/dL (28.0-37.0); MCV 89.9 fL (80.0-100.0); NUCLEATED RBCS 0 /100WBC; PLATELET COUNT* 129 thou/uL (150-400); POLYS 62.7 %; RDW-CV 15.8 % (10.5-14.5); WBC 2.5 thou/uL (4.0-11.0)
[2021-03-02 11:45] LABS: CALCIUM 7.8 mg/dL (8.5-10.1); CREATININE 1.5 mg/dL (0.6-1.3)
[2021-03-02 11:47] LABS: POTASSIUM 2.5 mmol/L (3.5-5.1)
[2021-03-02 12:01] LABS: ALBUMIN 2.3 g/dL (3.4-5.0); TOTAL BILIRUBIN 11.4 mg/dL (<0.1-1.0)
[2021-03-02 13:21] LABS: APTT 29.5 Seconds (25.0-31.3); INR 1.2; PROTIME 13.1 Seconds (9.20-11.50)
--- NOTE | 2021-03-02 13:33 | EKG ---
[place] [address] ELECTROCARDIOGRAM REPORT Name: JEAN WELLINGTON Room: [facility]#: [id number] Admission: 03/02/21 Attend Phys: Discharge: Date of : 62 Date of Service: 03/02/21 1252 Report #: [id number] THIS REPORT FOR: //name// [facility] ED Test Date: 2021-03-02 Test Time: 12:52:30 Pat Name: JEAN WELLINGTON Department: Room: Gender: Smash Hand: : 1960 Requested By: Lico Merritt Order Number: [id number] MD: Dwayne Murillo Measurements Intervals [place] Rate: 75 P: 56 [place]: 170 QRS: -26 QRSD: 112 T: -1 QT: 490 QTc: 548 Interpretive Statements Sinus rhythm artifact noted Inferior infarct, old Abnormal lateral Q waves Probable anterior infarct, age indeterminate Prolonged QT interval Compared to ECG 05/03/2020 08:24:03 Myocardial infarct finding now present Q waves now present Prolonged QT interval now present Electronically Signed On 03-02-2021 13:33:39 CDT by Dwayne Murillo [email or web address] <ELECTRONICALLY SIGNED> By: Dwayne Murillo MD, FACC 03/02/21 1333 1252 1252 Dwayne Murillo MD, [facility] /EPI
[2021-03-02 17:50] LABS: ICTOTEST (BILI CONFIRMATORY) Positive (Negative); URINE BILIRUBIN 2+ (Negative); URINE BLOOD NEGATIVE (Negative); URINE CLARITY CLEAR; URINE COLOR DARK YELLOW; URINE GLUCOSE-RANDOM NEGATIVE (Negative); URINE KETONES NEGATIVE (Negative); URINE LEUKOCYTES-REFLEX NEGATIVE (Negative); URINE NITRITE-REFLEX NEGATIVE (Negative); URINE PROTEIN TRACE (Negative); URINE SPECIFIC GRAVITY 1.015 (1.005-1.030)
[2021-03-02 18:03] VITALS: BP 119/71
== END 2021-03-02 18:03 | disposition short-term general hospital (02) ==
LOC: M.ERS 10:44
PROVIDERS: Emergency Medicine Emergency Medical Services
DX: G93.40 Encephalopathy, unspecified (principal); Z20.822 Contact with and (suspected) exposure to COVID-19; G93.89 Other specified disorders of brain; Z88.0 Allergy status to penicillin; Z90.710 Acquired absence of both cervix and uterus